=== PATIENT | female | born 1990 | race Caucasian/White ===

== ENCOUNTER 2017-08-15 10:50 | Outpatient (CLI) | payer OTHER | END 2017-08-15 10:51 | disposition home or self-care (01) | LOC: BICRAD 10:50 | PROVIDERS: ATTEND Internal Medicine | DX: J45.40 Moderate persistent asthma, uncomplicated (principal) | CPT/HCPCS: 71046 ==

== ENCOUNTER 2020-07-06 17:33 | Emergency (ER) | payer OTHER ==
[2020-07-06] MEDS ORDERED: Ondansetron ODT 8 MG TAB ONE (18:15)
[2020-07-06 18:44] LABS: Bacteria/HPF 2+ HPF (None Seen); Bilirubin Negative (Negative); Blood, Urine 3+ (Negative); Clarity Clear (Clear); Glucose, Urine (Dipstick) Normal (Negative); Ketone, Urine Greater than 150 mg/dL (Negative); Leukocyte Negative Leu/uL (Negative); Mucous/LPF 1+ LPF (<2+); Nitrite Negative (Negative); Protein, Urine (Dipstick) 50 mg/dL (Neg-Trace); RBC/HPF 21-50 HPF (0-3); Specific Gravity, Urine 1.035 (1.002-1.036); Urobilinogen Normal mg/dL (Less than 2); pH, Urine 5.5 (5.0-9.0)
[2020-07-06 18:46] LABS: Pregnancy Test - Urine (BHCG) Negative (Negative); Pregu Control Background? CLEAR/WHITE (CLR/WHITE); Pregu Control Bar Appear? YES (CONTROL BAR); Specific Gravity 1.035 (1.002-1.036)
[2020-07-06] MEDS ORDERED: Promethazine HCl 25 MG/ML VIAL ONE (19:11)
[2020-07-07 07:51] LABS: SARS-CoV-2 MS2 Positive; SARS-CoV-2 N Gene Negative; SARS-CoV-2 S Gene Negative; SARS-CoV-2 by NAA Not Detected (NotDetected); SARS-CoV-2 orf1ab Negative
--- NOTE | 2020-07-10 16:53 | EKG ---
Test Reason : Blood Pressure : / mmHG Vent. Rate : 081 BPM Atrial Rate : 081 BPM P-R Int : 118 ms QRS Dur : 086 ms QT Int : 402 ms P-R-T Axes : 032 045 053 degrees QTc Int : 466 ms Normal sinus rhythm with sinus arrhythmia Normal ECG Confirmed by YUVAL DELAROSA ([id number]), graphics editor SUSAN CASTANEDA ([id number]) on 07/10/2020 4:52:59 PM Referred By: Confirmed By:YUVAL Syed
== END 2020-07-06 21:09 | disposition home or self-care (01) ==
LOC: ERS 17:33
DX: R11.2 Nausea with vomiting, unspecified (principal); R19.7 Diarrhea, unspecified; R50.9 Fever, unspecified; R42 Dizziness and giddiness; Z20.828 Contact with and (suspected) exposure to other viral communicable diseases
CPT/HCPCS: 81003; 81015; 81025; 87635; 93005; 96365; 96366; J2550; Q0162; U0003